=== PATIENT | female | born 1990 | race Two or more races ===

== ENCOUNTER 2018-12-11 21:51 | Inpatient (IN) | payer OTHER ==
[~2018-12-11] VITALS: Ht 170.2 cm; Wt 101.2 kg
[2018-12-11 23:00] VITALS: BP 98/57
--- NOTE | 2018-12-11 23:10 | NUR ---
PHONE COUNSELOR ADMITTING NOTES RECEIVED PT FROM [facility] ACCOMPANIED BY 2 GEAR SHAPER SET UP OPERATOR. PT AWAKE ALERT ORIENTEDX4 COMPLAINING OF ABDOMINAL PAIN 10/10 AND BROWNISH VAGINAL DISCHARGE. IV ACCESS ON THE R AC 20G SL, PATENT AND FLUSHING. TELE MONITOR IN PLACE, SINUS RHYTHM IN THE 90S. BED IN LOWEST LOCKED POSITION. CALL LIGHT WITH REACH AT ALL TIMES, WILL CONTINUE TO MONITOR.
[2018-12-12] MEDS ORDERED: ONDANSETRON HCL/PF 4 MG/2 ML VIAL IVP PRN (00:30)
[2018-12-12] MEDS ORDERED: MAG HYDROX/AL HYDROX/SIMETH 30 ML UDC PO PRN (00:30)
[2018-12-12] MEDS ORDERED: ZOLPIDEM TARTRATE 5 MG TABLET PO PRN (00:30)
[2018-12-12] MEDS ORDERED: MAGNESIUM HYDROXIDE 30 ML UDC PO PRN (00:30)
[2018-12-12] MEDS: IV NS 0.9% 1,000 ML IV PRN (00:58)
[2018-12-12] MEDS: MORPHINE SULFATE INJ 4 MG/ML DISP.SYRIN IV PRN ×2 (00:58→05:13)
[2018-12-12] MEDS ORDERED: CEFTRIAXONE 1 G VIAL ONE (01:38)
[2018-12-12] MEDS: ACETAMINOPHEN 325 MG TABLET PO PRN ×3 (04:56→23:01)
[2018-12-12 05:51] VITALS: BP 100/61
--- NOTE | 2018-12-12 06:29 | NUR ---
PROSTHETIC TECHNICIAN CLOSING NOTES PT REMAINS IN BED INTERMITTENTLY SLEEPING. BREATHING EVEN AND UNLABORED ON 2L OF 02 NC. COMPLAINING OF ABDOMINAL PAIN 4/10 AFTER GIVING MORPHINE. IV ACCESS ON THE L AC 20G WITH NS @100ML/HR. TELE MONITOR IN PLACE, SINUS RHYTHM IN THE HIGH 90S. BED IN LOWEST LOCKED POSITION. CALL LIGHT WITH REACH AT ALL TIMES, WILL ENDORSE TO DAY NURSE FOR LOGAN
[2018-12-12 07:11] LABS: BASOPHILS % (AUTO) 0.3 % (0.0-2.0); EOSINOPHILS % (AUTO) 0.1 % (0.0-6.0); HEMATOCRIT 26 % (33-45); HEMOGLOBIN 8.7 g/dL (11.5-14.8); MEAN CORPUSCULAR HGB CONC 33 g/dl (31.0-36.0); MEAN CORPUSCULAR VOLUME 82 fL (82-100); MONOCYTES # (AUTO) 1.3 /CMM (0.1-1.30); MONOCYTES % (AUTO) 14.8 % (2.0-12.0); NEUTROPHILS # (AUTO) 6.4 /CMM (1.8-8.9); NEUTROPHILS % (AUTO) 73.8 % (43.0-81.0); PLATELET COUNT (AUTO) 151 /CMM (150-450); WHITE BLOOD COUNT (AUTO) 8.7 K/uL (4.3-11.0)
[2018-12-12 07:16] LABS: ALBUMIN 2.5 g/dL (3.4-5.0); BILIRUBIN,TOTAL 0.5 mg/dL (0.2-1.0); CALCIUM, SERUM 7.2 mg/dL (8.5-10.1); CREATININE 0.9 mg/dL (0.6-1.3); MAGNESIUM 1.6 mg/dL (1.8-2.4); PHOSPHORUS 1.9 mg/dL (2.5-4.9); TOTAL PROTEIN, SERUM 5.6 g/dL (6.4-8.2)
[2018-12-12] MEDS: HYDROCODONE/APAP 5/325MG 1 EACH TABLET PO PRN (07:20)
[2018-12-12 08:00] VITALS: BP 99/51
[2018-12-12] MEDS ORDERED: ALBU6.7H INH (08:19)
[2018-12-12] MEDS ORDERED: ACET325T39 PO (08:19)
[2018-12-12] MEDS ORDERED: IBUP-1955 PO (08:19)
[2018-12-12] MEDS ORDERED: HYDROMORPHONE 1 MG/1 ML DISP.SYRIN IV PRN (09:00)
[2018-12-12] MEDS ORDERED: POTASSIUM CHLORIDE 20 MEQ TAB.PRT.SR PO ONE (11:30)
[2018-12-12] MEDS: PANTOPRAZOLE 40 MG VIAL IV SCH (11:34)
[2018-12-12] MEDS: METRONIDAZOLE 500MG/ NS 100ML 500 MG in PREMIX 1 EA IV SCH ×2 (11:50→18:01)
[2018-12-12] MEDS: Magnesium 1GM/D5W 100ML PREMIX 100 ML IV SCH ×2 (13:18→15:21)
[2018-12-12] MEDS ORDERED: IOHEXOL-300 100 ML VIAL IV ONE (14:50)
[2018-12-12] MEDS ORDERED: CT SWABBABLE VALVE TRANS SET 1 EA INFUS.SET MC ONE (14:51)
[2018-12-12] MEDS ORDERED: IV NS 0.9% 250 ML IV ONE (14:51)
[2018-12-12] MEDS ORDERED: HYDROMORPHONE INJ 2 MG/ML DISP.SYRIN IV ONE (15:00)
[2018-12-12 16:00] VITALS: BP 107/59
[2018-12-12] MEDS ORDERED: K PHOS NEUTRAL 250 MG TABLET PO ONE (16:00)
[2018-12-12] MEDS ORDERED: FEE PK DOSING 1 MIN EA MC ONE (17:14)
[2018-12-12] MEDS ORDERED: HYDROMORPHONE INJ 2 MG/ML DISP.SYRIN IV PRN (17:20)
[2018-12-12] MEDS ORDERED: GENTAMICIN 500 MG in IV D5W 100 ML IV SCH (18:00)
--- NOTE | 2018-12-12 19:30 | NUR ---
MS/RN OPENING NOTES PT RECEIVED AWAKE, TALKING ON THE PHONE. A/OX4. ON ROOM AIR, BREATHING EVEN AND UNLABORED. DENIES SOB, IN NO ACUTE DISTRESS. NOTES LEFT SIDED ABDOMINAL PAIN 04/13, RECENTLY RECEIVED PAIN MEDICATION. IV TO LAC PATENT AND INTACT RUNNING IVF ORDERED. BED IN LOW/LOCKED POSITION WITH CALL LIGHT IN REACH. BILATERAL UPPER SIDE RAILS IN PLACE, HOB ELEVATED. WILL CONTINUE TO MONITOR
--- NOTE | 2018-12-12 19:58 | NUR ---
RN CLOSING NOTES PT. IS IN BED AWAKE, A&OX4. BREATHING UNLABORED ON OXYGEN AT 2L/MIN VIA NASAL CANNULA. NO S/S OF ACUTE DISTRESS. IV FLUIDS RUNNING AT 100 ML/HR. BED IS IN LOWEST, AND LOCKED POSITION. 2 SIDE RAILS UP, AND INSTRUCTED PT. TO USE CALL LIGHT FOR ASSISTANCE. ALL NEEDS MET. ENDORSED REPORT TO NURSE.
[2018-12-12 20:00] VITALS: BP 101/60
--- NOTE | 2018-12-12 20:02 | NUR ---
Met with patient at bedside, she lives in [place] with her 2 minor daughters. She is ambulatory and independent with adl's and working. Her pcp is Dr. Erika Sandoval at [facility] for pcp.She plan to return home once discharge. Her mother Quyen [phone] will provide ride when discharge. Addendum: 12/12/18 at 2001 by ZOHREH LEBRON RN Amended: Links added.
[2018-12-12] MEDS: GENTAMICIN 500 MG in IV D5W 100 ML IV SCH (20:45)
--- NOTE | 2018-12-12 22:50 | NUR ---
MS/RN NOTES PT C/O 06/13 LEFT SIDED ABDOMINAL PAIN RADIATING TO LEFT BUTTOCK AND LEFT BACK. ALSO WITH CHILLS. 98.4F ORAL, BP 85/50, HR 112. CHECKED OTHER ARM, BP 81/43, HR 110. ADMINISTERED TYLENOL FOR NOW. WILL RECHECK BP Addendum: 12/12/18 at 2339 by LEIGHTON BAUER RN BP 93/45, HR 95. OFFERED HOT PACK/ ICE PACK, PT REFUSED. SAYS ITS NOT EFFECTIVE. WILL CONTINUE TO MONITOR
[2018-12-13] VITALS (9 sets, daily range): BP systolic 75–107; BP diastolic 41–68
[2018-12-13] MEDS: IV NS 0.9% 1,000 ML IV PRN (01:07)
[2018-12-13] MEDS: CEFTRIAXONE 1 G in IV D5W 50 ML IV SCH (01:07)
[2018-12-13] MEDS: HYDROCODONE/APAP 5/325MG 1 EACH TABLET PO PRN ×4 (01:09→19:35)
[2018-12-13] MEDS: METRONIDAZOLE 500MG/ NS 100ML 500 MG in PREMIX 1 EA IV SCH ×3 (01:55→16:11)
--- NOTE | 2018-12-13 06:34 | NUR ---
MS/RN CLOSING NOTES PT RESTING IN BED WITH EYES CLOSED. OPENS EYES TO NAME. A/OX4. ON ROOM AIR, BREATHING EVEN AND UNLABORED. DENIES SOB. SHARP PAIN NOTED 7/10 TO BILATERAL ABDOMEN RADIATING TO BUTTOCKS, PRN NORCO ADMINISTERED AND EFFECTIVE. IV TO RAC AND LEFT HAND PATENT AND INTACT RUNNING IVF ORDERED. MONITORED BP THROUGHOUT SHIFT, PT NOTED WITH EPISODES OF HYPOTENSION WITH SBP IN THE HIGH 80'S. PT ADMITS TO POOR APPETITE. NO BM YET BUT PASSING FLATUS. ENCOURAGED PO INTAKE TOLERATED. DENIES VAGINAL BLEEDING. NO SIGNIFICANT CHANGES OVERNIGHT. ALL NEEDS MET. KEPT PT COMFORTABLE POSSIBLE DURING SHIFT. BED REMAINS IN LOW/LOCKED POSITION WITH CALL LIGHT IN REACH. BILATERAL UPPER SIDE RAILS IN PLACE AND HOB ELEVATED. WILL ENDORSE TO DAY SHIFT SERAFIN FORD.
[2018-12-13 06:53] LABS: BASOPHILS % (AUTO) 0.4 % (0.0-2.0); EOSINOPHILS % (AUTO) 1.5 % (0.0-6.0); HEMATOCRIT 28 % (33-45); HEMOGLOBIN 9.2 g/dL (11.5-14.8); LYMPHOCYTES # (AUTO) 1.4 /CMM (0.8-4.8); LYMPHOCYTES % (AUTO) 18.7 % (20.0-44.0); MEAN CORPUSCULAR HGB CONC 32 g/dl (31.0-36.0); MEAN CORPUSCULAR VOLUME 84 fL (82-100); MONOCYTES % (AUTO) 14.1 % (2.0-12.0); NEUTROPHILS # (AUTO) 4.8 /CMM (1.8-8.9); NEUTROPHILS % (AUTO) 65.3 % (43.0-81.0); PLATELET COUNT (AUTO) 161 /CMM (150-450); RED BLOOD CELL COUNT(AUTO) 3.39 MIL/uL (4.0-5.2); WHITE BLOOD COUNT (AUTO) 7.4 K/uL (4.3-11.0)
[2018-12-13 06:58] LABS: CALCIUM, SERUM 8.2 mg/dL (8.5-10.1); CREATININE 0.8 mg/dL (0.6-1.3); POTASSIUM 4.2 mmol/L (3.5-5.1)
[2018-12-13 07:02] LABS: GENTAMICIN,RANDOM 1.8 ug/ml (4.0-8.0); MAGNESIUM 1.9 mg/dL (1.8-2.4); PHOSPHORUS 3.4 mg/dL (2.5-4.9)
--- NOTE | 2018-12-13 07:29 | NUR ---
MS RN OPENING NOTE RECEIVED PT IN BED SLEEPING. BREATHING IS EVEN AND UNLABORED ON ROOM AIR, NO ACUTE DISTRESS NOTED AT THIS TIME. L HAND #22G IV IS INFUSING NS @ 100ML/HR WITHOUT REDNESS OR SWELLING, R AC #20G IV IS SALINE LOCKED WITHOUT REDNESS OR SWELLING. ALL NEEDS ATTENDED TO. BED IS LOCKED AND IN LOWEST POSITION, SIDE RAILS UP X2, BED ALARM ON, CALL LIGHT AND POSSESSIONS WITHIN REACH.
[2018-12-13] MEDS: PANTOPRAZOLE 40 MG VIAL IV SCH (09:14)
[2018-12-13] MEDS: ACETAMINOPHEN 325 MG TABLET PO PRN ×2 (09:14→17:55)
--- NOTE | 2018-12-13 09:14 | NUR ---
MS RN NOTE ADDITIONAL ACETAMINOPHEN PULLED BECAUSE INITIAL DOSE DROPPED ON GROUND BY SQUADRON WORKER. ONLY ACETAMINOPHEN 650MG ADMINISTERED ORDERED.
[2018-12-13] MEDS ORDERED: KETOROLAC TROMETHAMINE INJ 30 MG/ML VIAL IM PRN (10:00)
--- NOTE | 2018-12-13 12:00 | NUR ---
MS RN NOTE LEFT HAND #22G PERIPHERAL IV FOUND TO BE PAINFUL WITH CONTINUOUS FLUIDS AND WITH NO BLOOD RETURN. REMOVED WITH CATHETER TIP INTACT, R AC #22G IV IS PATENT, CLEAN, DRY AND INTACT. RESUMED NS @ 100ML/HR ORDERED.
--- NOTE | 2018-12-13 12:49 | NUR ---
MS RN NOTE NORCO 5-325MG ADMINISTERED FOR LOWER ABDOMINAL PAIN RATED 8/10. PT HAD RECEIVED TORADOL 15MG IM AT 1056 FOR PAIN ORDERED WITH MINIMAL EFFECTIVENESS PER PATIENT. BP: 96/56, HR: 70, SP02: 97%. PT DENIES DIZZINESS, SOB, CHEST PAIN, AND MENTAL STATUS IS AT BASELINE OF A/OX4.
--- NOTE | 2018-12-13 17:48 | NUR ---
MS RN NOTE INFORMED DR. MG OF MANUAL BP: 75/75, HR: 80, R: 20, T: 97.9, SP02: 95%. PT DENIES CHILLS, SOB, CHEST PAIN, MENTAL STATUS IS AT BASELINE OF A/O X4. RECEIVED ORDERS FOR 1 LN NS BOLUS AND INTO INCREASE CONTINUES NS TO 125ML/HR AFTER BOLUS FINISHED. Addendum: 12/13/18 at 1833 by ALVIN MATTSON RN BP: 75/45
[2018-12-13] MEDS ORDERED: IV NS 0.9% 1,000 ML BAG IV ONE (18:00)
--- NOTE | 2018-12-13 18:00 | NUR ---
MS RN NOTE R AC #20G IV FOUND TO BE PAINFUL WHEN FLUSHED WITH NO BLOOD RETURN. REMOVED WITH CATHETER TIP INTACT AND NEW IV INSERTED AT THE LEFT FA #24G AND IS PATENT, CLEAN, DRY AND INTACT. PT TOLERATED PROCEDURE WELL.
--- NOTE | 2018-12-13 18:25 | NUR ---
MS RN CLOSING NOTE PT IN BED SLEEPING AND EASILY AROUSABLE. PT IS ALERT AND ORIENTED X4, DENIES N/V, CHEST PAIN, SOB. BREATHING IS EVEN AND UNLABORED ON ROOM AIR, NO ACUTE DISTRESS NOTED AT THIS TIME. PT RATES ABDOMINAL PAIN 5/10 LOCATED IN THE LEFT AND RIGHT LOWER QUADRANTS. PT ADMINISTERED TYLENOL 650MG AT 1748 FOR PAIN CONTROL. L FA #24G IV IS INFUSING ONE TIME ORDER OF 1L NS BOLUS REDNESS OR SWELLING WITH ORDERS TO CONTINUE NS @ 125ML/HR AFTER BOLUS IS COMPLETED. ADLS PROVIDED AND PT ENCOURAGED AND ASSISTED TO TURN AND REPOSITION Q2H FOR THE DURATION OF THE SHIFT. ALL NEEDS ATTENDED TO. BED IS LOCKED AND IN LOWEST POSITION, SIDE RAILS UP X2, BED ALARM ON, CALL LIGHT AND POSSESSIONS WITHIN REACH. WILL ENDORSE TO CHANNELER NURSE FOR CONTINUITY OF CARE.
--- NOTE | 2018-12-13 18:41 | NUR ---
MS RN BP RE CHECK BP: 101/68, HR: 77
--- NOTE | 2018-12-13 19:15 | NUR ---
MS RN NOTE RECEIVED PT IN STABLE CONDITION A&O X4, ABLE TO MAKE NEEDS KNOWN. PT CURRENTLY IN BED USING CELLPHONE. R FA #24 PATENT AND INTACT, IVF BOLUS OF NS INFUSING, TOLERATING WELL. WILL CONT TO MONITOR BP. SAFETY MEASURES IN PLACE: BED LOW, LOCKED, UPPER RAILS UP, CALL LIGHT WITHIN REACH. WILL CONT TO MONITOR.
--- NOTE | 2018-12-13 19:35 | NUR ---
MS RN NOTE PRN NORCO 5-325 MG GIVEN FOR PAIN 7/10 IN THE PELVIC AREA. PT CURRENT VITALS ARE 97/58, 75. WILL CONT TO MONITOR.
[2018-12-13] MEDS: GENTAMICIN 500 MG in IV D5W 100 ML IV SCH (19:40)
--- NOTE | 2018-12-13 20:45 | NUR ---
MS RN NOTE REASSESSED PT'S CURRENT VITALS: 81/47, 73, 98.7, 18, 98%. IV BOLUS OF NS COMPLETED. PT REMAINS A&O X4 WITH NO CHANGES IN MENTAL STATUS. WILL CONT TO MONITOR.
--- NOTE | 2018-12-13 22:34 | NUR ---
MS RN NOTE NOTIFIED JULIO SAP TECHNICAL ARCHITECT OF PT BP OF 107/60, 80 AND CURRENT ORDER OF DILAUDID 2 MG Q2H. SAP TECHNICAL ARCHITECT WITH NEW ORDER FOR DILAUDID 1 MG Q6H IV. NEW ORDER CARRIED OUT.
[2018-12-13] MEDS: HYDROMORPHONE 1 MG/1 ML DISP.SYRIN IV PRN (23:09)
--- NOTE | 2018-12-13 23:09 | NUR ---
MS RN NOTE PRN DILAUDID 1 MG IV GIVEN FOR PAIN 06/13. CURRENT BP IS 107/60 HR 80. PT REMAINS A&O X4 WITH NO CHANGE IN ORIENTATION. WILL CONT TO MONITOR.
--- NOTE | 2018-12-13 23:43 | NUR ---
RESOURCE RN NOTES: RESTARTED NEW IV ACCESS ON LEFT HAND USING G 22, NOTED WITH GOOD BLOOD RETURN, IV ACCESS SECURED WITH TRANSPARENT DRESSING, LABELS ATTACHED.
[2018-12-14] MEDS: CEFTRIAXONE 1 G in IV D5W 50 ML IV SCH (00:02)
[2018-12-14] MEDS: METRONIDAZOLE 500MG/ NS 100ML 500 MG in PREMIX 1 EA IV SCH ×3 (00:38→16:03)
--- NOTE | 2018-12-14 06:00 | NUR ---
MS RN NOTE PT IN STABLE CONDITION A&O X4, ABLE TO MAKE NEEDS KNOWN. PT CURRENTLY IN BED RESTING. L HAND#24 PATENT AND INTACT, IVF NS @125 ML/HR INFUSING, TOLERATING WELL. SAFETY MEASURES IN PLACE: BED LOW, LOCKED, UPPER RAILS UP, CALL LIGHT WITHIN REACH. WILL CONT TO MONITOR AND ENDORSE TO NEXT SHIFT FOR LOGAN.
[2018-12-14 06:02] VITALS: BP 114/65
--- NOTE | 2018-12-14 06:02 | NUR ---
MS RN NOTE PRN DILAUDID 1 MG IV GIVEN FOR LOWER PAIN 07/14. PT'S CURRENT VITALS ARE 114/65, 86, 98.7, 19, 98%.
[2018-12-14] MEDS: IV NS 0.9% 1,000 ML IV PRN (06:21)
[2018-12-14] MEDS: HYDROMORPHONE 1 MG/1 ML DISP.SYRIN IV PRN ×2 (06:22→15:58)
--- NOTE | 2018-12-14 07:13 | NUR ---
MS RN OPENING NOTE RECEIVED PATIENT IN BED. ALERT, ORIENTED X4. ON ROOM AIR, TOLERATING WELL. IN NO APPARENT DISTRESS OR DISCOMFORT AT THIS TIME. RESPIRATIONS EVEN AND UNLABORED. DENIES PAIN AND SOB. ABLE TO VERBALIZE NEEDS, ABLE TO AMBULATE INDEPENDENTLY, LEFT HAND IVC 22G WITH FLUID RUNNING AT 125ML.HR. PATIENT KEPT CLEAN AND COMFORTABLE. ALL NEEDS ATTENDED, SAFETY MEASURES IN PLACE, BED IN LOW LOCKED POSITION, SIDE RAILS UP X2, CALL LIGHT WITHIN EASY REACH. WILL CONTINUE TO MONITOR.
[2018-12-14 07:16] LABS: BASOPHILS % (AUTO) 0.3 % (0.0-2.0); EOSINOPHILS % (AUTO) 1.9 % (0.0-6.0); HEMATOCRIT 26 % (33-45); HEMOGLOBIN 8.5 g/dL (11.5-14.8); LYMPHOCYTES % (AUTO) 15.7 % (20.0-44.0); MEAN CORPUSCULAR HGB CONC 32 g/dl (31.0-36.0); MEAN CORPUSCULAR VOLUME 83 fL (82-100); MONOCYTES # (AUTO) 0.6 /CMM (0.1-1.30); NEUTROPHILS # (AUTO) 4.6 /CMM (1.8-8.9); NEUTROPHILS % (AUTO) 73.1 % (43.0-81.0); PLATELET COUNT (AUTO) 173 /CMM (150-450); RED BLOOD CELL COUNT(AUTO) 3.16 MIL/uL (4.0-5.2); WHITE BLOOD COUNT (AUTO) 6.3 K/uL (4.3-11.0)
[2018-12-14 07:26] LABS: CALCIUM, SERUM 8.1 mg/dL (8.5-10.1); CREATININE 0.8 mg/dL (0.6-1.3); MAGNESIUM 1.8 mg/dL (1.8-2.4); PHOSPHORUS 3.2 mg/dL (2.5-4.9); POTASSIUM 3.9 mmol/L (3.5-5.1)
[2018-12-14 08:00] VITALS: BP 103/36
[2018-12-14] MEDS: PANTOPRAZOLE 40 MG VIAL IV SCH (08:32)
[2018-12-14] MEDS: ACETAMINOPHEN 325 MG TABLET PO PRN (08:43)
[2018-12-14 09:00] VITALS: BP 105/70
[2018-12-14] MEDS ORDERED: KETOROLAC TROMETHAMINE INJ 30 MG/ML VIAL IM PRN (09:30)
--- NOTE | 2018-12-14 10:57 | NUR ---
CALLED AND LEFT A MESSAGE FOR DR. BENNETT TO INQUIRE ABOUT FOLLOW UP VISIT.
[2018-12-14 16:00] VITALS: BP 110/66
--- NOTE | 2018-12-14 18:54 | NUR ---
MS RN CLOSING NOTE PATIENT IN BED. ALERT, ORIENTED X4. ON ROOM AIR, TOLERATING WELL. IN NO APPARENT DISTRESS OR DISCOMFORT AT THIS TIME. RESPIRATIONS EVEN AND UNLABORED. DENIES PAIN AND SOB. ABLE TO VERBALIZE NEEDS, ABLE TO AMBULATE INDEPENDENTLY, LEFT HAND IVC 22G WITH FLUID RUNNING AT 125ML.HR. PATIENT KEPT CLEAN AND COMFORTABLE. ALL NEEDS ATTENDED, ORDERS RENDERED, SAFETY MEASURES IN PLACE, BED IN LOW LOCKED POSITION, SIDE RAILS UP X2, CALL LIGHT WITHIN EASY REACH, WILL ENDORSE TO PM NURSE FOR LOGAN.
--- NOTE | 2018-12-14 19:30 | NUR ---
MS RN NOTE RECEIVED PT IN STABLE CONDITION A&O X4, ABLE T MAKE NEEDS KNOWN. PT IS CURRENTLY IN BED WITH MOM AT BEDSIDE. IV ON L HAND IS PATENT AND INTACT INFUSING NS @125 ML/HR. SAFETY PRECAUTIONS IN PLACE: BED LOW, LOCKED, UPPER RAILS UP, CALL LIGHT WITHIN REACH. ALL CURRENT NEEDS MET. WILL CONT TO MONITOR.
[2018-12-14 20:00] VITALS: BP 120/79
[2018-12-14] MEDS: GENTAMICIN 500 MG in IV D5W 100 ML IV SCH (20:07)
[2018-12-14] MEDS: HYDROCODONE/APAP 5/325MG 1 EACH TABLET PO PRN (20:45)
[2018-12-14 22:38] LABS: APPEARANCE,URINE SL CLOUDY (CLEAR); BILIRUBIN,URINE NEGATIVE (NEGATIVE); BLOOD, URINE TRACE-INTA Ery/uL (NEGATIVE); COLOR,URINE YELLOW (YELLOW); KETONES,URINE NEGATIVE (NEGATIVE); LEUKOCYTE ESTERASE ,URINE 2+ (NEGATIVE); NITRITE, URINE NEGATIVE (NEGATIVE); PROTEIN,URINE NEGATIVE (NEGATIVE); UGLUCOSE NEGATIVE (NEGATIVE); UROBILINOGEN,URINE 0.2 EU/dL (0.2)
[2018-12-15 00:06] LABS: BACTERIA,URINE Few /HPF (None Seen); SQUAMOUS EPITHELIAL CELL,UR Few /HPF (None Seen); WBC,URINE 21-50 /HPF (0-3)
[2018-12-15] MEDS: CEFTRIAXONE 1 G in IV D5W 50 ML IV SCH (00:26)
[2018-12-15] MEDS: IV NS 0.9% 1,000 ML IV PRN (00:40)
[2018-12-15] MEDS: HYDROMORPHONE 1 MG/1 ML DISP.SYRIN IV PRN ×3 (00:41→17:22)
[2018-12-15] MEDS: METRONIDAZOLE 500MG/ NS 100ML 500 MG in PREMIX 1 EA IV SCH ×3 (01:09→17:22)
[2018-12-15 06:47] LABS: BASOPHILS % (AUTO) 0.6 % (0.0-2.0); EOSINOPHILS % (AUTO) 3.1 % (0.0-6.0); HEMATOCRIT 25 % (33-45); HEMOGLOBIN 8.3 g/dL (11.5-14.8); LYMPHOCYTES # (AUTO) 1.6 /CMM (0.8-4.8); LYMPHOCYTES % (AUTO) 31.3 % (20.0-44.0); MEAN CORPUSCULAR HGB CONC 33 g/dl (31.0-36.0); MEAN CORPUSCULAR VOLUME 82 fL (82-100); MONOCYTES # (AUTO) 0.5 /CMM (0.1-1.30); MONOCYTES % (AUTO) 9.8 % (2.0-12.0); NEUTROPHILS # (AUTO) 2.9 /CMM (1.8-8.9); NEUTROPHILS % (AUTO) 55.2 % (43.0-81.0); PLATELET COUNT (AUTO) 193 /CMM (150-450); RED BLOOD CELL COUNT(AUTO) 3.08 MIL/uL (4.0-5.2); WHITE BLOOD COUNT (AUTO) 5.2 K/uL (4.3-11.0)
--- NOTE | 2018-12-15 06:51 | NUR ---
MS RN NOTE PT IN STABLE CONDITION A&O X4, ABLE T MAKE NEEDS KNOWN. PT IS CURRENTLY IN BED, RESTING. IV ON L HAND IS PATENT AND INTACT INFUSING NS @125 ML/HR. SAFETY PRECAUTIONS IN PLACE: BED LOW, LOCKED, UPPER RAILS UP, CALL LIGHT WITHIN REACH. ALL CURRENT NEEDS MET. WILL CONT TO MONITOR AND ENDORSE TO NEXT SHIFT FOR LOGAN.
[2018-12-15 07:03] LABS: CREATININE 0.8 mg/dL (0.6-1.3); MAGNESIUM 1.8 mg/dL (1.8-2.4); PHOSPHORUS 3.8 mg/dL (2.5-4.9); POTASSIUM 3.6 mmol/L (3.5-5.1)
[2018-12-15 07:24] LABS: IRON, SERUM 18 ug/dl (50-175); TOTAL IRON BINDING CAPACITY 169 ug/dl (250-450)
--- NOTE | 2018-12-15 07:38 | NUR ---
MS RN OPENING NOTE RECEIVED PATIENT IN BED. ALERT, ORIENTED X4. ON ROOM AIR, TOLERATING WELL. IN NO APPARENT DISTRESS OR DISCOMFORT AT THIS TIME. RESPIRATIONS EVEN AND UNLABORED. DENIES PAIN AND SOB. ABLE TO VERBALIZE NEEDS, ABLE TO AMBULATE INDEPENDENTLY, LEFT HAND IVC 22G WITH FLUID RUNNING AT 125ML/HR, PATENT AND INTACT. PATIENT KEPT CLEAN AND COMFORTABLE. ALL NEEDS ATTENDED, SAFETY MEASURES IN PLACE, BED IN LOW LOCKED POSITION, SIDE RAILS UP X2, CALL LIGHT WITHIN EASY REACH. WILL CONTINUE TO MONITOR.
[2018-12-15 08:00] VITALS: BP 108/71
[2018-12-15] MEDS: PANTOPRAZOLE 40 MG VIAL IV SCH (08:14)
[2018-12-15] MEDS ORDERED: HYDR-4384 PO (12:47)
[2018-12-15] MEDS ORDERED: AMOX500C2 PO (12:47)
[2018-12-15] MEDS: HYDROCODONE/APAP 5/325MG 1 EACH TABLET PO PRN (13:23)
[2018-12-15 16:00] VITALS: BP 114/65
--- NOTE | 2018-12-15 19:00 | NUR ---
MS KENNEL KEEPER NOTE RECEIVED ORDER FOR DISCHARGE. PATIENT IS BEING DISCHARGED HOME WITH SELF CARE TO FOLLOW UP WITH PRIMARY HEALTH PHYSICIAN. PATIENT IS STABLE, VITAL SIGNS STABLE. IN NO APPARENT DISTRESS OR DISCOMFORT AT THIS TIME. RESPIRATIONS EVEN AND UNLABORED. PAIN MEDICATION ADMINISTERED PRIOR TO DISCHARGE. DISCHARGE INSTRUCTIONS PREPARED VIA [employer]. EDUCATION PROVIDED REGARDING DISCHARGE INSTRUCTIONS, FOLLOW UP CARE, NEW PRESCRIPTION MEDICATIONS. BELONGINGS CHECKED AND ACCOUNTED FOR. ALL PAPERWORK SIGNED, COPIES MADE AND PLACED IN THE CHART. PATIENT REFUSED IMMUNIZATIONS, RISKS AND BENEFITS EXPLAINED. SKIN ASSESSMENT PERFORMED PRIOR TO DISCHARGE, INTACT AT THE TIME OF ADMISSION. IV SITE DISCONTINUED, TIP INTACT. ID BAND REMOVED. PATIENT WAS PICKED UP BY HER MOM, ON A PRIVATE CAR. LEFT THE UNIT ACCOMPANIED BY JEANNETTE BARNES AT 1900.
== END 2018-12-15 19:00 | disposition home or self-care (01) | DRG 720 ==
LOC: TELE 22:55 → MED 12-12 10:17
PROVIDERS: ADMIT Nurse Practitioner Acute Care; ATTEND Student in an Organized Health Care Education/Training Program
DX: A41.9 Sepsis, unspecified organism (principal); E44.1 Mild protein-calorie malnutrition; E87.1 Hypo-osmolality and hyponatremia; E87.6 Hypokalemia; J45.909 Unspecified asthma, uncomplicated; Z87.440 Personal history of urinary (tract) infections; Z83.3 Family history of diabetes mellitus; N88.8 Other specified noninflammatory disorders of cervix uteri; K80.20 Calculus of gallbladder without cholecystitis without obstruction; E66.9 Obesity, unspecified; Z68.34 Body mass index [BMI] 34.0-34.9, adult; N10 Acute pyelonephritis; N28.89 Other specified disorders of kidney and ureter
CPT/HCPCS: 36415; 71045-TC; 76856-TC; 78582; 80048-TC; 80053-TC; 80061-TC; 80170-TC; 81000-TC; 83540-TC; 83735-TC; 84100-TC; 84703-TC; 85025-TC; 87040-TC; 87081-TC; 87086-TC; 93926-TC; 93971-TC; 94799-TC; A4216; A9540; A9567; C9113; G0378; J0696; J1170; J1580; J1885; J2270; J3475; J3490; J7030; J7050; J7060; Q9967